=== PATIENT | male | born 1975 | race Caucasian/White ===

== ENCOUNTER 2025-03-31 17:49 | Inpatient (IN) | payer BC ==
[2025-03-31 19:17] LABS: #Basophils Less than 0.03 10x3/uL (0.0-0.2); #Eosinophils 0.14 10x3/uL (0.0-0.7); #Monocytes 0.39 10x3/uL (0.11-0.59); #Neutrophils 3.99 10x3/uL (1.40-6.50); %Basophils 0.2 % (0.0-1.0); %Eosinophils 2.7 % (0.0-10.0); %Lymphocytes 10.7 % (21.0-51.0); %Monocytes 7.6 % (0.0-10.0); %Neutrophils 78.0 % (42.0-75.0); Hematocrit 22.9 % (42.0-52.0); Hemoglobin 8.3 g/dL (14.0-18.0); Mean Corpuscular Hemoglobin 33.9 pg (27.0-31.0); Mean Corpuscular Volume 93.5 fL (78.0-98.0); Platelet Count 22 10x3/uL (130-400); Red Blood Cell (RBC) Count 2.45 mill/uL (4.70-6.10); Reflex for Review?? YES; White Blood Cell (WBC) Count 5.12 10x3/uL (4.8-10.8)
[2025-03-31 19:23] LABS: Lipase 163 U/L (8-78)
[2025-03-31 19:24] LABS: INR-International Normal Ratio 5.1; Prothrombin Time 47.6 sec (12.0-14.7)
[2025-03-31 19:25] LABS: Acetaminophen Less than 10 mcg/mL (Less than 10); Salicylate Less than 8.0 mg/dL (Less than 8.0)
[2025-03-31 19:26] LABS: PTT 113.8 sec (22.9-36.1)
[2025-03-31 19:28] LABS: ALT (SGPT) 40 U/L (Less than 45); AST (SGOT) 68 U/L (11-34); Albumin 1.5 g/dL (3.1-4.5); Alkaline Phosphatase 76 U/L (40-110); Anion Gap 13 mmol/L (10-20); BUN (Urea Nitrogen) 76 mg/dL (8.9-20.6); Calc. Creatinine Clearance 0 mL/min (70-130); Calcium 7.2 mg/dL (7.8-10.44); Carbon Dioxide 15 mmol/L (22-29); Chloride 95 mmol/L (98-107); Globulin 1.7 g/dL (2.4-3.5); Glucose 124 mg/dL (70-105); Potassium 2.7 mmol/L (3.5-5.1); Sodium 120 mmol/L (136-145)
[2025-03-31 19:32] LABS: Bilirubin, Total 35.1 mg/dL (0.3-1.2)
[2025-03-31] MEDS ORDERED: NOREPINEPHRINE 8 MG/250 ML-D5W 250 ML ONE (19:32)
[2025-03-31 19:45] LABS: Anisocytosis MODERATE=16-30 cells HPF (0-5); Burr Cells MODERATE= 6-15 cells HPF (0-1); Macrocytosis MODERATE=16-30 cells HPF (0-5); Platelet Adequacy Comment Significant Decrease; Polychromasia SLIGHT = 2-3 cells HPF (0-2)
[2025-03-31] MEDS ORDERED: Potassium Bicarbonate/Cit Ac 20 MEQ TAB ONE (20:50)
[2025-03-31] MEDS ORDERED: Octreotide Acetate 1,250 MCG in Sodium Chloride 0.9% 250 ML 250 ML IVPB SCH (21:15)
[2025-03-31] MEDS ORDERED: cefTRIAXone (ROCEPHIN) 2 GM VIAL ONE (22:39)
[2025-04-01] MEDS ORDERED: Calcium Carbonate 500 MG ChewTAB PO PRN (00:17)
[2025-04-01] MEDS ORDERED: Acetaminophen 325 MG TAB PO SCH (00:30)
[2025-04-01] MEDS ORDERED: Vasopressin In 0.9 % NaCl 40 UNIT in Premix 1 BAG IV SCH (00:30)
[2025-04-01 02:58] VITALS: BMI 41.4
[2025-04-01] MEDS: cefTRIAXone\\ROCEPHIN 1 GM in Sodium Chloride 0.9% 100 ML IVPB SCH (03:40)
[2025-04-01] MEDS: Albumin 25% 25 GM (100 mL) BOT IVPB SCH (03:40)
[2025-04-01] MEDS: DEXTROSE 5% IV SCH ×3 (03:41→05:11)
[2025-04-01] MEDS: ACETYLCYSTEINE IV SCH ×3 (03:41→05:11)
[2025-04-01] MEDS: WATER IV SCH ×3 (03:41→05:11)
[2025-04-01] MEDS: Sodium Bicarb 50 MEQ/50 ML Abboject 8.4% SYRINGE IVP SCH (03:46)
[2025-04-01] MEDS: NOREPINEPHRINE 8 MG/250 ML-D5W 250 ML IVPB PRN (03:47)
[2025-04-01] MEDS: Pantoprazole 80 MG, Admixture Fee 1 EACH in Sodium Chloride 0.9% 100 ML IVPB SCH (04:25)
[2025-04-01] MEDS: Ondansetron PF 4 MG/2 ML Vial IVP PRN (07:50)
[2025-04-01 13:55] VITALS: TEMP 97.9
== END 2025-04-01 15:13 | disposition hospice, inpatient (51) | DRG 441 ==
LOC: ERS 17:49 → CCU 04-01 00:26
PROVIDERS: ADMIT Student in an Organized Health Care Education/Training Program; ATTEND Internal Medicine
PROC: 0T9B70Z Drainage of Bladder with Drainage Device, Via Natural or Artificial Opening (ICD-10-PCS; principal; 2025-04-01)
PROC: 02HV33Z Insertion of Infusion Device into Superior Vena Cava, Percutaneous Approach (ICD-10-PCS; 2025-04-01)
PROC: B5181ZA Fluoroscopy of Superior Vena Cava using Low Osmolar Contrast, Guidance (ICD-10-PCS; 2025-04-01)
PROC: 3E033XZ Introduction of Vasopressor into Peripheral Vein, Percutaneous Approach (ICD-10-PCS; 2025-04-01)
PROC: 3E03329 Introduction of Other Anti-infective into Peripheral Vein, Percutaneous Approach (ICD-10-PCS; 2025-04-01)
PROC: 30233J1 Transfusion of Nonautologous Serum Albumin into Peripheral Vein, Percutaneous Approach (ICD-10-PCS; 2025-04-01)
DX: K72.00 Acute and subacute hepatic failure without coma (principal); K76.7 Hepatorenal syndrome; R57.9 Shock, unspecified; E87.1 Hypo-osmolality and hyponatremia; E72.20 Disorder of urea cycle metabolism, unspecified; D68.9 Coagulation defect, unspecified; E87.20 Acidosis, unspecified; K72.10 Chronic hepatic failure without coma; K76.82 Hepatic encephalopathy; Z51.5 Encounter for palliative care; Z66 Do not resuscitate; K70.30 Alcoholic cirrhosis of liver without ascites; K70.10 Alcoholic hepatitis without ascites; E87.8 Other disorders of electrolyte and fluid balance, not elsewhere classified; E80.6 Other disorders of bilirubin metabolism; E87.6 Hypokalemia; Z88.0 Allergy status to penicillin; Z88.2 Allergy status to sulfonamides
CPT/HCPCS: 36415; 36416; 36556; 51702; 70450; 71045; 80053; 80307; 82140; 83605; 83690; 83880; 84484; 85025; 85060; 85610; 85730; 86850; 86900; 86901; 87040; 87086; 93005; 96374; 96375; 96376; J0132; J0696; J2270; J2354; J2405; J2470; J7050; J7070; P9047